=== PATIENT | male | born 1985 | race Caucasian/White ===

== ENCOUNTER 2017-10-02 14:19 | Emergency (ER) | payer SELFPAY ==
[2017-10-02] MEDS ORDERED: Aspirin Low Dose CHEW TAB* 81 MG PO ONE (14:43)
[2017-10-02] MEDS ORDERED: Al Hydrox/Mg Hydrox/Simet LIQ* 30 ML UDC PO ONE (14:43)
[2017-10-02] MEDS ORDERED: Ondansetron INJ* 2 MG/ML VIAL IV ONE (14:43)
[2017-10-02] MEDS ORDERED: Famotidine IV* 10 MG/ML 2 ML (20 mg) IV ONE (14:43)
[2017-10-02 15:11] LABS: ABS Basophils 0 10^3/ul (0-0.2); ABS Eosinophils 0.2 10^3/ul (0-0.6); ABS Lymphocytes 1.9 10^3/ul (1.0-4.8); ABS Monocytes 0.4 10^3/ul (0-0.8); ABS Neutrophils 4.2 10^3/ul (1.5-7.7); ABS Nucleated RBC 0 10^3/ul; Eosinophil % 3.3 % (0-6); Hematocrit 47 % (42-52); Hemoglobin 16.2 g/dl (14.0-18.0); Lymphocyte % 27.8 % (25-47); Mean Corpuscular HGB Conc 34 g/dl (31-36); Mean Corpuscular Hemoglobin 29 pg (27-31); Mean Corpuscular Volume 85 fL (80-94); Mean Platelet Volume 8 um3 (7.4-10.4); Nucleated Red Blood Cells % 0.1; Platelet Count 239 10^3/ul (150-450); Red Blood Count 5.57 10^6/ul (4.0-5.4); Red Cell Distribution Width 13 % (10.5-15); White Blood Count 6.7 10^3/ul (3.5-10.8)
[2017-10-02 15:25] LABS: EGFR Non-African American 110.4 (>60)
[2017-10-02 15:57] VITALS: BP 129/81
--- NOTE | 2017-10-12 00:53 | ED ---
Alysha Nazario Gabriel, scribed for Elias Diaz MD on 10/02/17 at 1442 . HPI Chest Pain - HPI Summary HPI Summary: This patient is a 31 year old F presenting to [facility] with a chief complaint of CP since 1200 today. The patient rates the pain 4/10 in severity, describes it as clenching/burning, and located in the left side. Patient reports diaphoresis , dizziness, and SOB. Patient denies fever. Patient is a PhD student, was up all night working, and drank coffee at 0230. He went to bed at 0900 and awoke at 1200 with these symptoms. - History of Current Complaint Chief Complaint: EDChestPainROMI Time Seen by Provider: 10/02/17 14:37 Hx Obtained From: Patient Onset/Duration: Started Hours Ago - 3, Still Present Time of Onset: 12:00 Timing: Constant Initial Severity: Mild Current Severity: Mild Pain Intensity: 4 Pain Scale Used: 0-10 Numeric Chest Pain Location: Left Anterior Chest Pain Radiates: No Character: Burning Associated Signs and Symptoms: Positive: Other: - diaphoresis, dizziness, and SOB - Allergy/Home Medications Allergies/Adverse Reactions: Allergies Allergy/AdvReac Type Severity Reaction Status Date / Time Cefaclor Allergy Hives Verified 10/02/17 14:25 PMH/Surg Hx/FS Hx/Imm Hx Previously Healthy: Yes Endocrine/Hematology History: Denies: Hx Diabetes Cardiovascular History: Denies: Hx Hypertension Respiratory History: Denies: Hx Chronic Obstructive Pulmonary Disease (COPD) History: Denies: Hx Acute Renal Failure Musculoskeletal History: Denies: Hx Arthritis Sensory History: Denies: Hx Cataracts EENT History: Denies: Hx Deafness Neurological History: Denies: Hx CVA Infectious Disease History: No Infectious Disease History: Denies: Traveled Outside the [place] in Last 30 Days - Family History Known Family History: Negative: Hypertension - Social History Occupation: Student Alcohol Use: Daily - one beer at night Hx Substance Use: No Substance Use Type: Reports: None Hx Tobacco Use: No Smoking Status (MU): Never Smoked Tobacco Review of Systems Positive: Skin Diaphoresis. Negative: Fever Positive: Chest Pain Positive: Shortness Of Breath Neurological: Other - dizziness All Other Systems Reviewed And Are Negative: Yes Physical Exam - Summary Physical Exam Summary: Appearance: Well appearing, no pain distress Skin: warm, dry, reflects adequate perfusion Head/face: normal Eyes: EOMI, [place] ENT: normal Neck: supple, non-tender Respiratory: CTA, breath sounds present Cardiovascular: RRR, pulses symmetrical Abdomen: non-tender, soft Bowel: present Musculoskeletal: normal, strength/ROM intact. No LE edema Neuro: normal, sensory motor intact, A&Ox3 Triage Information Reviewed: Yes Vital Signs On Initial Exam: Initial Vitals Temp Pulse Resp BP Pulse Ox 96.5 F 84 18 167/115 99 10/02/17 14:21 10/02/17 14:21 10/02/17 14:21 10/02/17 14:21 10/02/17 14:21 Vital Signs Reviewed: Yes Diagnostics - Vital Signs Vital Signs Temp Pulse Resp BP Pulse Ox 10/02/17 14:21 96.5 F 84 18 167/115 99 - Laboratory Lab Results: Lab Results 10/02/17 10/02/17 Range/Units 15:00 15:00 WBC 6.7 (3.5-10.8) 10^3/ul RBC 5.57 H (4.0-5.4) 10^6/ul Hgb 16.2 (14.0-18.0) g/dl Hct 47 (42-52) % MCV 85 (80-94) fL MCH 29 (27-31) pg MCHC 34 (31-36) g/dl RDW 13 (10.5-15) % Plt Count 239 (150-450) 10^3/ul MPV 8 (7.4-10.4) um3 Neut % (Auto) 62.3 (38-83) % Lymph % (Auto) 27.8 (25-47) % [place] % (Auto) 6.2 (1-9) % Eos % (Auto) 3.3 (0-6) % Baso % (Auto) 0.4 (0-2) % Absolute Neuts (auto) 4.2 (1.5-7.7) 10^3/ul Absolute Lymphs (auto) 1.9 (1.0-4.8) 10^3/ul Absolute Monos (auto) 0.4 (0-0.8) 10^3/ul Absolute Eos (auto) 0.2 (0-0.6) 10^3/ul Absolute Basos (auto) 0 (0-0.2) 10^3/ul Absolute Nucleated RBC 0 10^3/ul Nucleated RBC % 0.1 Sodium 135 (133-145) mmol/L Potassium 3.5 (3.5-5.0) mmol/L Chloride 102 (101-111) mmol/L Carbon Dioxide 27 (22-32) mmol/L Anion Gap 6 (2-11) mmol/L BUN 12 (6-24) mg/dL Creatinine 0.81 (0.67-1.17) mg/dL Est GFR ( Amer) 142.0 (>60) Est GFR (Non-Af Amer) 110.4 (>60) BUN/Creatinine Ratio 14.8 (8-20) Glucose 96 (70-100) mg/dL Calcium 9.5 (8.6-10.3) mg/dL Total Bilirubin 1.00 (0.2-1.0) mg/dL AST 18 (13-39) U/L ALT 18 (7-52) U/L Alkaline Phosphatase 93 (34-104) U/L Troponin I 0.00 (<0.04) ng/mL Total Protein 7.1 (6.4-8.9) g/dL Albumin 4.3 (3.2-5.2) g/dL Globulin 2.8 (2-4) g/dL Albumin/Globulin Ratio 1.5 (1-3) Result Diagrams: 10/02/17 15:00 10/02/17 15:00 Lab Statement: Any lab studies that have been ordered have been reviewed, and results considered in the medical decision making process. - EKG 1426 Cardiac Rate: NL EKG Rhythm: Sinus Rhythm - at 74 BPM EKG Interpretation: normal axis, normal interval Chest Pain Course/Dx - Course Course Of Treatment: Patient with no identifiable independent risk factors for cardiac disease. She has not been sleeping and is having increased belching and dyspepsia.Her discomfort was relieved with GI treatments. We will continue similar outpatient treatment and follow up with primary care physician. Assessment/Plan: Patient has a THEODORE score of 0 - Diagnoses Provider Diagnoses: Sleep deprivation, Atypical chest pain, GERD (gastroesophageal reflux disease) Discharge - Discharge Plan Condition: Good Disposition: HOME Prescriptions: Famotidine TAB* [Pepcid 20 MG TAB*] 20 mg PO BID #10 tab Sucralfate [Carafate] 1 gm PO Q6H #40 tab Patient Education Materials: Chest Pain (ED), Gastroesophageal Reflux Disease ( ED) Referrals: MERLIN Ruiz [Medical Doctor] - No Primary Care Phys,NOPCP [Primary Care Provider] - Additional Instructions: Avoid caffeine, ibuprofen, spicy foods and alcohol. Make sure you get adequate sleep. Drink plenty of water. Return if worse, new symptoms or other concerns as discussed. The documentation as recorded by the Alysha doll Gabriel accurately reflects the service I personally performed and the decisions made by me, Elias Diaz MD.
== END 2017-10-02 15:56 | disposition home or self-care (01) ==
LOC: ED 14:19
DX: Z72.820 Sleep deprivation (principal); K21.9 Gastro-esophageal reflux disease without esophagitis; R07.89 Other chest pain; R42 Dizziness and giddiness; R06.02 Shortness of breath
CPT/HCPCS: 36415; 80053; 84484; 85025; 93005; 96374; 96375; 99282; A9270-GY; J2405